=== PATIENT | female | born 1985 | race American Indian/Alaskan Native ===

== ENCOUNTER 2021-05-12 09:50 | Inpatient (IN) | payer OTHER ==
[~2021-05-12] VITALS: Ht 160 cm; Wt 64.9 kg
[2021-05-12] MEDS ORDERED: PRENATAL CAPLE1 EAC1 PO (11:21)
[2021-05-12] MEDS ORDERED: ENOXAPARIN40 MG/0.4 SQ (11:21)
[2021-05-12] MEDS ORDERED: PROBIOTIC1 EAC2 PO (11:22)
[2021-05-12] MEDS ORDERED: DIALYVITE 800-1 EACH PO (11:22)
== END 2021-05-14 16:01 | disposition home or self-care (01) | DRG 807 ==
LOC: LDR 09:50 → OB/GYN 22:07
PROVIDERS: ADMIT Obstetrics & Gynecology; ATTEND Obstetrics & Gynecology
PROC: 10E0XZZ Delivery of Products of Conception, External Approach (ICD-10-PCS; principal; 2021-05-12)
PROC: 0KQM0ZZ Repair Perineum Muscle, Open Approach (ICD-10-PCS; 2021-05-12)
PROC: 4A1HXFZ Monitoring of Products of Conception, Cardiac Rhythm, External Approach (ICD-10-PCS; 2021-05-12)
DX: O70.1 Second degree perineal laceration during delivery (principal); Z37.0 Single live birth; Z3A.39 39 weeks gestation of pregnancy